=== PATIENT | male | born 1990 | race Caucasian/White ===

== ENCOUNTER 2022-10-04 08:45 | Outpatient (CLI) | payer BC, SELFPAY | END 2022-10-04 08:46 | disposition home or self-care (01) | LOC: NFLDREF 10-05 18:24 | PROVIDERS: PCP Family Medicine; Referring Provider Family Medicine; Visit Provider Family Medicine | DX: Z13.1 Encounter for screening for diabetes mellitus (principal); Z13.6 Encounter for screening for cardiovascular disorders | CPT/HCPCS: 80061; 82947 ==

== ENCOUNTER 2023-09-27 15:01 | Emergency (ER) | payer BC, SELFPAY ==
[2023-09-27 15:12] VITALS: BP 130/83; PULSE 77; RESP 16; TEMP 36.8; O2SAT 97; BMI 34.1
--- OUTSIDE RECORDS SUMMARY | 2023-09-27 15:49 | XMS_ITS | Clinical Summary ---
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 Name Role Phone Pcp, No Primary Care Provider Unavailabl e Allergies No known active allergies Medications No known medications Encounters Date Type Department Care Team Description 07/08/2023 Telephone [facility] [address] [place] [address] Jaimie Angulo, , [facility] [place] (Hereditary Cancer Genetic Testing/) 06/29/2023 10:00 AM CDT Orders Only [address] [id number] Lab, Formerly [facility] Lab 06/29/2023 Travel from Last 3 Months Immunizations Name Administration Dates Next Due DTP-HIB 07/15/1993,04/21/1993,02/10/1993 DTaP 12/09/1998 HIB PRP-T (ActHIB,Hiberix) 06/02/1994 Hepatitis A (Peds) 06/20/2008,12/13/2007 Hepatitis B (Peds) 08/27/1998,04/02/1998, 998 Inactivated Polio Vaccine 06/02/1994,12/30/1993, 04/21/1993,02/10/1993 Influenza, IIV4 03/12/2015 MMR 12/09/1998,12/30/1993 Meningococcal Vaccine (Menactra) 10/29/2004 Td (Age >=7 Years) 10/29/2004 Tdap 03/12/2015 Family History Medical History Relation Name Comments Good Health Father Heart Disease Maternal Grandfather MA Good Health Mother Good Health Sister 1 Good Health Sister 2 Relation Name Status Comments Father Maternal Grandfather Mother Sister 1 Sister 2 Social History Tobacco Use Types Packs/Day Years Used Date Smoking Tobacco: Never Alcohol Use Standard Drinks/Week Comments No 0 (1 standard drink = 0.6 oz pur e alcohol) Sex and Gender Information Value Date Recorded Sex Assigned at Not on file Gender Identity Not on file Sexual Orientation Not on file Obstetrics History Last Filed Vital Signs Vital Sign Reading Time Taken Comments Blood Pressure 121/75 12/30/2010 1:59 PM CDT Pulse 79 12/30/2010 1:59 PM CDT Temperature - - Respiratory Rate - - Oxygen Saturation - - Inhaled Oxygen Concentration - - Weight 126.9 kg (279 lb 12.8 oz) 12/30/2010 1:59 PM CDT Height 194.3 cm (6' 4.5) 12/30/2010 1:59 PM CDT Body Mass Index 33.61 12/30/2010 1:59 PM CDT Plan of Treatment Health Maintenance Due Date Last Done Comments Depression screening for age 12+ 2004 HIV for age 15-65 12/17/2007 BMI (ht and wt on same day) for age 18+ 2010 Hepatitis C screening for ag e 18-79 2010 COVID-19 vaccine series (2022- season) 2022 Influenza for age 9-49 12/18/2023 03/12/2015 Tetanus booster 03/12/2025 03/12/2015, 10/29/2004 Tdap Completed 03/12/2015 Pneumococcal series for age 6-64 Aged Out No longer eligible b ased on patient's age to complete this topic Care Teams Fashion Photographer Relationship Specialty Start Date End Date Pcp, No . PCP - General 12/29/10
--- NOTE | 2023-09-27 15:50 | CRLHL7_ITS ---
For Patients: As a result of the Century Cures Act, medical imaging exams and procedure reports are released immediately into your electronic medical record. You may view this report before your referring provider. If you have questions, please contact your health care provider. Indication: Chest pressure Technique: PA and lateral views of the chest. Comparison: None. Findings: Low lung volumes. Normal cardiomediastinal silhouette. No focal consolidation, pleural effusions, or visualized pneumothorax. Impression: No acute cardiopulmonary disease. Dictated by Marco Wells MD @ 09/27/2023 4:33:20 PM (Electronically Signed)
--- NOTE | 2023-09-27 16:15 | ED.GENADULT ---
HPI - General Adult General Date Seen: 09/27/23 <Rosemarie Ambriz MD - Last Filed: 09/29/23 05:58> Chief complaint: Chest Pain <Rosemarie Ambriz MD - Last Filed: 09/29/23 05:58> Stated complaint: Chest pressure/discomfort <Rosemarie Ambriz MD - Last Filed: 09/29/23 05:58> Time Seen by Provider: 09/27/23 15:23 <Rosemarie Ambriz MD - Last Filed: 09/29/23 05:58> Source: patient, RN notes reviewed and old records reviewed <Rosemarie Ambriz MD - Last Filed: 09/29/23 05:58> Mode of arrival: ambulatory <Rosemarie Ambriz MD - Last Filed: 09/29/23 05:58> Limitations: no limitations <Rosemarie Ambriz MD - Last Filed: 09/29/23 05:58> History of Present Illness HPI narrative: Patient is a 32-year-old, generally healthy young man who called clinic today with regard to chest pain and was recommended to come to the ER. He tells me that since about June she has had episodic twinges of chest pain localized in the left anterior chest which he says he can best describe as a pinching sensation. They last about 5 seconds. They are not related to activity, position, eating, breathing or any other factors. Nothing reliably brings these on but he says if he is having them he tends to feel better if he lays on his stomach. He has had a couple episodes in the past year of problems with his left shoulder, had some paresthesias last year which retrospectively he thinks were related to an injury to his neck. These improved quickly with prednisone. He has had some shoulder pain which has been felt to be muscular, he will tend to feel that after a long day of lifting or machine work. He has not had fevers or current cough, he he was treated recently for a sinus infection which has improved. He does not smoke, has no risk factors for heart disease such as hypertension, diabetes, family history. Not currently symptomatic. <Rosemarie Ambriz MD - Last Filed: 09/29/23 05:58> Related Data Home medications: Previous Rx's ?Medication ?Instructions ?Recorded albuterol sulfate 90 mcg/actuation 2 puff inhalation Q4-6H PRN 07/22/23 aerosol inhaler shortness of breath or wheezing #8.5 grams <Rosemarie Ambriz MD - Last Filed: 09/29/23 05:58> Allergies/adverse reactions: Allergies Allergy/AdvReac Type Severity Reaction Status Date / Time No Known Drug Allergies Allergy Verified 08/02/23 15:18 <Rosemarie Ambriz MD - Last Filed: 09/29/23 05:58> Review of Systems Status of ROS: Reports: 10 or more systems reviewed and unremarkable except as noted in History and below <Rosemarie Ambriz MD - Last Filed: 09/29/23 05:58> [facility] Medical History: Medical History Cough ?R05.9 - Cough, unspecified (ICD-10) Family history of Gardner syndrome ?Z80.0 - Family history of malignant neoplasm of digestive organs (ICD-10) Tear meniscus knee ?S83.209A - Unspecified tear of unspecified meniscus, current injury, unspecified knee, initial encounter (ICD-10) <Rosemarie Ambriz MD - Last Filed: 09/29/23 05:58> Surgical History: Surgical History Hx of knee surgery ?Z98.890 - Other specified postprocedural states (ICD-10) <Rosemarie Ambriz MD - Last Filed: 09/29/23 05:58> Family History: Family History Mother Gardner syndrome Maternal Grandmother Gardner syndrome Sister Gardner syndrome <Rosemarie Ambriz MD - Last Filed: 09/29/23 05:58> Social History: Social History Smoking Status: Never smoker Do you use any of these nicotine containing products: None Second hand tobacco smoke exposure: No How often do you have a drink containing alcohol: 2-3 times a week How many standard drinks containing alcohol do you have on a typical day: 1 or 2 How often do you have six or more drinks on one occasion: Never AUDIT-C Alcohol total score: 3 Non-prescribed substance use: denies use Little interest or pleasure in doing things: not at all Feeling down, depressed, or hopeless: not at all service: No <Rosemarie Ambriz MD - Last Filed: 09/29/23 05:58> Exam Narrative: Exam Narrative: Vital signs as noted above. In general, an alert, well-appearing patient. Head: Normocephalic, atraumatic. Eyes: Pupils are equal reactive. Extraocular movements are full. Conjunctivae are normal. ENT: Mucous membranes are moist. Throat is normal. Neck: Supple without lymphadenopathy. Heart: Regular rate and rhythm. No murmur or rub. Chest wall nontender to palpation. Lungs: Clear bilaterally. No increased work of breathing, crackles or wheezes. Abdomen: Soft and nontender. No organomegaly. Extremities: Well perfused. No edema. No calf tenderness. Pulses intact. Neurologic: Patient is alert and oriented to person and place. Speech is fluent. Face is symmetric. Moves all extremities equally. Affect: Normal. Skin: Warm and dry. Well perfused. <Rosemarie Ambriz MD - Last Filed: 09/29/23 05:58> Const: Vital Signs, click to edit/add: Vital Signs - 24 hr 09/27/23 15:12 Temperature 98.3 F Pulse Rate [Pulse Oximeter] 77 Respiratory Rate 16 Blood Pressure [Ri ght Upper Arm] 130/83 Pulse Oximetry 97 Oxygen Delivery Me thod Room Air <Rosemarie Ambriz MD - Last Filed: 09/29/23 05:58> Vital Signs, click to edit/add: Vital Signs - 24 hr 09/27/23 15:12 Temperature 98.3 F Pulse Rate [Pulse Oximeter] 77 Respiratory Rate 16 Blood Pressure [Ri ght Upper Arm] 130/83 Pulse Oximetry 97 Oxygen Delivery Me thod Room Air <Cassandra Valerio MD - Last Filed: 09/27/23 17:09> Documenting provider has reviewed patient's vital signs: yes <Rosemarie Ambriz MD - Last Filed: 09/29/23 05:58> Course Course ED Course: Patient presents with several months of noncardiac sounding chest pain, not currently symptomatic although he was having trouble earlier today. I will check a troponin just to rule out any kind of inflammatory process. I do not think that his symptoms are related to acute coronary syndrome or angina. I do not think this represents PE, symptoms are brief and self limited and have been ongoing for months. His lungs are clear, did order a chest x-ray just to look for any evidence of an inflammatory process or mass in the lung. Suspect this is related to something in the chest wall. EKG done here shows a sinus rhythm, ventricular rate of 74. No acute ST segment changes, no DE depression or other findings suggestive of pericarditis. Normal corrected QT, normal DE. T-waves are unremarkable. Patient signed out to oncoming physician to follow-up on labs. My suspicion is that these will be negative and patient can be discharged home with supportive care and outpatient follow-up. <Rosemarie Ambriz MD - Last Filed: 09/29/23 05:58> Vital Signs Vital signs: Initial Vital Signs Temperature 98.3 F 09/27/23 15:12 Temperature Source Temporal Artery Scan 09/27/23 15:12 Pulse Rate 77 09/27/23 15:12 Respiratory Rate 16 09/27/23 15:12 Blood Pressure 130/83 09/27/23 15:12 Blood Pressure Mean 98 09/27/23 15:12 Blood Pressure Position Sitting 09/27/23 15:12 Pulse Oximetry 97 09/27/23 15:12 Oxygen Delivery Method Room Air 09/27/23 15:12 Vital Signs Temperature 98.3 F 09/27/23 15:12 Pulse Rate 77 09/27/23 15:12 Respiratory Rate 16 09/27/23 15:12 Blood Pressure 130/83 09/27/23 15:12 Pulse Oximetry 97 09/27/23 15:12 Oxygen Delivery Method Room Air 09/27/23 15:12 Temperature 98.3 F 09/27/23 15:12 Pulse Rate 77 09/27/23 15:12 Respiratory Rate 16 09/27/23 15:12 Blood Pressure 130/83 09/27/23 15:12 Pulse Oximetry 97 09/27/23 15:12 Oxygen Delivery Method Room Air 09/27/23 15:12 <Rosemarie Ambriz MD - Last Filed: 09/29/23 05:58> Initial Vital Signs Temperature 98.3 F 09/27/23 15:12 Temperature Source Temporal Artery Scan 09/27/23 15:12 Pulse Rate 77 09/27/23 15:12 Respiratory Rate 16 09/27/23 15:12 Blood Pressure 130/83 09/27/23 15:12 Blood Pressure Mean 98 09/27/23 15:12 Blood Pressure Position Sitting 09/27/23 15:12 Pulse Oximetry 97 09/27/23 15:12 Oxygen Delivery Method Room Air 09/27/23 15:12 Vital Signs Temperature 98.3 F 09/27/23 15:12 Pulse Rate 77 09/27/23 15:12 Respiratory Rate 16 09/27/23 15:12 Blood Pressure 130/83 09/27/23 15:12 Pulse Oximetry 97 09/27/23 15:12 Oxygen Delivery Method Room Air 09/27/23 15:12 Temperature 98.3 F 09/27/23 15:12 Pulse Rate 77 09/27/23 15:12 Respiratory Rate 16 09/27/23 15:12 Blood Pressure 130/83 09/27/23 15:12 Pulse Oximetry 97 09/27/23 15:12 Oxygen Delivery Method Room Air 09/27/23 15:12 <Cassandra Valerio MD - Last Filed: 09/27/23 17:09> Medical Decision Making MDM Narrative Medical decision making narrative: I was asked to follow-up on the lab results of this patient. Chest x-ray, read by me, does not show any acute pathology. His blood work was unremarkable with a normal CBC, normal chemistries, CRP less than 0.5, troponin is 0. Results discussed with patient. Encouraged to follow up with primary care provider. <Cassandra Valerio MD - Last Filed: 09/27/23 17:09> Lab Data Labs: Lab Results 09/27/23 Range/Units 16:32 WBC 6.18 (4.50-11.00) K/uL RBC 5.24 (4.30-5.90) m/uL Hgb 14.6 (13.5-17.5) gm/dL Hct 41.6 (37.0-53.0) % MCV 79 L (80-100) fL MCH 28 (26-34) pg MCHC 35 (32-36) gm/dL RDW Coeff of Fouzia 12.2 (11.5-15.5) % Plt Count 254 (140-440) K/uL Neut % (Auto) 57.2 (42.0-72.0) % Lymph % (Auto) 31.6 (20-44) % [place] % (Auto) 8.4 (0.0-11.0) % Eos % (Auto) 2.1 (0.0-7.0) % Baso % (Auto) 0.5 (0.0-3.0) % Neut # (Auto) 3.54 (1.7-7.0) K/uL Lymph # (Auto) 1.95 (0.90-2.90) K/uL [place] # (Auto) 0.50 (0.00-0.90) K/UL Eos # (Auto) 0.13 (0.00-0.50) K/uL Baso # (Auto) 0.03 (0.00-0.30) K/uL Abs Immat Gran (auto) 0.01 (0.00-0.30) K/uL Imm/Tot Granulo (auto) 0.2 % ESR 6 (2-15) mm/hr Sodium 140 (135-149) mmol/L Potassium 3.9 (3.6-5.1) mmol/L Chloride 106 (96-114) mmol/L Carbon Dioxide 28 (20-32) mmol/L Anion Gap 6 L (7-15) mEq/L BUN 12 (5-24) mg/dL Creatinine 1.0 (0.5-1.5) mg/dL Estimated Creat Clear 132.61 Estimated GFR 104 ml/min Glucose 97 (60-115) mg/dL Calcium 9.1 (8.4-10.6) mg/dL C-Reactive Protein < 0.5 L (0.5-1.0) mg/dL POC Troponin I 0.00 L (0.01-0.04) ng/ml <Rosemarie Ambriz MD - Last Filed: 09/29/23 05:58> Lab Results 09/27/23 Range/Units 16:32 WBC 6.18 (4.50-11.00) K/uL RBC 5.24 (4.30-5.90) m/uL Hgb 14.6 (13.5-17.5) gm/dL Hct 41.6 (37.0-53.0) % MCV 79 L (80-100) fL MCH 28 (26-34) pg MCHC 35 (32-36) gm/dL RDW Coeff of Fouzia 12.2 (11.5-15.5) % Plt Count 254 (140-440) K/uL Neut % (Auto) 57.2 (42.0-72.0) % Lymph % (Auto) 31.6 (20-44) % [place] % (Auto) 8.4 (0.0-11.0) % Eos % (Auto) 2.1 (0.0-7.0) % Baso % (Auto) 0.5 (0.0-3.0) % Neut # (Auto) 3.54 (1.7-7.0) K/uL Lymph # (Auto) 1.95 (0.90-2.90) K/uL [place] # (Auto) 0.50 (0.00-0.90) K/UL Eos # (Auto) 0.13 (0.00-0.50) K/uL Baso # (Auto) 0.03 (0.00-0.30) K/uL Abs Immat Gran (auto) 0.01 (0.00-0.30) K/uL Imm/Tot Granulo (auto) 0.2 % ESR 6 (2-15) mm/hr Sodium 140 (135-149) mmol/L Potassium 3.9 (3.6-5.1) mmol/L Chloride 106 (96-114) mmol/L Carbon Dioxide 28 (20-32) mmol/L Anion Gap 6 L (7-15) mEq/L BUN 12 (5-24) mg/dL Creatinine 1.0 (0.5-1.5) mg/dL Estimated Creat Clear 132.61 Estimated GFR 104 ml/min Glucose 97 (60-115) mg/dL Calcium 9.1 (8.4-10.6) mg/dL C-Reactive Protein < 0.5 L (0.5-1.0) mg/dL POC Troponin I 0.00 L (0.01-0.04) ng/ml <Cassandra Valerio MD - Last Filed: 09/27/23 17:09> Imaging Data Chest x-ray: Attestation: I have reviewed the pertinent imaging results. <Cassandra Valerio MD - Last Filed: 09/27/23 17:09> Radiologist's impression: Study:?XRay-Chest 2 VIEW CHEST-09/27/2023 4:13:23 PM Ordering Physician:Maximo Houston Final Report: Indication: Chest pressure Technique: PA and lateral views of the chest. Comparison: None. Findings: Low lung volumes. Normal cardiomediastinal silhouette. No focal consolidation, pleural effusions, or visualized pneumothorax. Impression: No acute cardiopulmonary disease. <Cassandra Valerio MD - Last Filed: 09/27/23 17:09> Discharge Plan Discharge Clinical Impression: Non-cardiac chest pain <Rosemarie Ambriz MD - Last Filed: 09/29/23 05:58> Patient Disposition: Home, Self-Care <Rosemarie Ambriz MD - Last Filed: 09/29/23 05:58> Condition: Stable <Rosemarie Ambriz MD - Last Filed: 09/29/23 05:58> Instructions: Noncardiac Chest Pain (ED) <Rosemarie Ambriz MD - Last Filed: 09/29/23 05:58> Additional Instructions: My suspicion is that these symptoms are related to something in the chest wall. It would not be unreasonable to try ibuprofen 3 times daily with food for a week or 2 and see if symptoms improve. I do not think that this is related to your heart. Primary care follow-up would be appropriate for ongoing concerns. Return at any time for new or worsening symptoms, fevers, shortness of breath, etcetera. <Rosemarie Ambriz MD - Last Filed: 09/29/23 05:58> Prescriptions: No Action albuterol sulfate 90 mcg/actuation HFA aerosol inhaler 2 puff inhalation Q4-6H PRN (Reason: shortness of breath or wheezing) Qty: 8.5 1RF <Rosemarie Ambriz MD - Last Filed: 09/29/23 05:58> Follow Up/Referrals: Izabella Ballesteros APRN, STAFF REGISTERED NURSE [Primary Care Provider] - <Rosemarie Ambriz MD - Last Filed: 09/29/23 05:58> Stand Alone [facility]: [facility] <Rosemarie Ambriz MD - Last Filed: 09/29/23 05:58>
[2023-09-27 16:42] LABS: Basophils Absolute Auto 0.03 K/uL (0.00-0.30); Basophils Percent Auto 0.5 % (0.0-3.0); Eosinophils Absolute Auto 0.13 K/uL (0.00-0.50); Eosinophils Percent Auto 2.1 % (0.0-7.0); Hematocrit 41.6 % (37.0-53.0); Hemoglobin* 14.6 gm/dL (13.5-17.5); Immature Granulocytes Abs Auto 0.01 K/uL (0.00-0.30); Immature Granulocytes Pct Auto 0.2 %; Lymphocytes Absolute Auto 1.95 K/uL (0.90-2.90); Lymphocytes Percent Auto 31.6 % (20-44); Mean Corpuscular HGB Conc 35 gm/dL (32-36); Mean Corpuscular Hemoglobin 28 pg (26-34); Mean Corpuscular Volume 79 fL (80-100); Monocytes Percent Auto 8.4 % (0.0-11.0); Neutrophils Absolute Auto 3.54 K/uL (1.7-7.0); Neutrophils Percent Auto 57.2 % (42.0-72.0); Platelet Count* 254 K/uL (140-440); RDW Coefficient of Variation % 12.2 % (11.5-15.5); Red Blood Count 5.24 m/uL (4.30-5.90); White Blood Count* 6.18 K/uL (4.50-11.00)
[2023-09-27 16:45] LABS: Slide Review Reflex No
[2023-09-27 16:54] LABS: Chloride* 106 mmol/L (96-114); Sodium* 140 mmol/L (135-149)
[2023-09-27 16:55] LABS: Potassium* 3.9 mmol/L (3.6-5.1)
[2023-09-27 16:57] LABS: Est. Creatinine Clearance* 132.61; Estimated Glomerular Filt Rate 104 ml/min
[2023-09-27 16:58] LABS: Anion Gap 6 mEq/L (7-15); Blood Urea Nitrogen* 12 mg/dL (5-24); Calcium* 9.1 mg/dL (8.4-10.6); Carbon Dioxide* 28 mmol/L (20-32); Glucose* 97 mg/dL (60-115)
[2023-09-27 17:02] LABS: C Reactive Protein* < 0.5 mg/dL (0.5-1.0)
[2023-09-27 17:42] LABS: Erythrocyte SedimentationRate* 6 mm/hr (2-15)
== END 2023-09-27 17:15 | disposition home or self-care (01) ==
PROVIDERS: Emergency Medicine; Emergency Provider Family Medicine; PCP Nurse Practitioner Family
DX: R07.9 Chest pain, unspecified (principal)
CPT/HCPCS: 36415; 71046; 80048; 84484; 85025; 85651; 86140; 93005; 99284